=== PATIENT | male | born 1950 | race Caucasian/White ===

== ENCOUNTER → 2018-10-03 | Outpatient (CLI) | payer MEDICARE ==
--- NOTE | 2018-10-03 09:29 | PCVCIMAG ---
APPROVED REPORT Study performed: 10/03/2018 08:03:35 EXAM: Comprehensive 2D, Doppler, and color-flow Echocardiogram Patient Location: Echo lab Status: routine BSA: 1.93 HR: 63 bpmBP: 110/70 mmHg Rhythm: NSR Other Information Study Quality: Adequate Risk Factors: Cardiac Risk Factors: Hyperlipidemia Indications Murmur 2D Dimensions IVSd: 15.61 (7-11mm)LVOT Diam: 20.15 (18-24mm) LVDd: 38.06 mm PWd: 12.75 (7-11mm)Ascending Ao: 39.27 (22-36mm) LVDs: 35.47 (25-40mm) Left Atrium: 46.83 (27-40mm) Aortic Root: 30.94 mm LV Single Plane 4CH: 51.34 % LV Single Plane 2CH: 62.28 % Biplane EF: 58.7 % Volumes Left Atrial Volume (Systole) Single Plane 4CH: 59.19 mLSingle Plane 2CH: 38.11 mL LA ESV Index: 28.00 mL/m2 Aortic Valve AoV Peak Ananda.: 2.37 m/s AO Peak Gr.: 22.53 mmHgLVOT Max P.85 mmHg AO Mean Gr.: 13.34 mmHgLVOT Mean P.72 mmHg AO V2 Mean: 1.76 m/sLVOT Max V: 0.84 m/s AO V2 VTI: 49.92 cmLVOT Mean V: 0.62 m/s RENETTA (VTI): 1.27 [id number] V1 VTI: 19.87 cm RENETTA Vmax: 1.13 cm2 SV (LVOT): 63.32 mL Mitral Valve E/A Ratio: 0.8 MV Decel. Time: 187.07 ms MV E Max Ananda.: 0.61 m/s MV A Ananda.: 0.74 m/s IVRT: 124.57 ms TDI E/Lateral E': 8.71E/Medial E': 10.17 Medial E' Ananda.: 0.06 m/s Lateral E' Ananda.: 0.07 m/s Pulmonary Valve PV Peak Gr.: 3.30 mmHg Pulmonary Vein P Vein S: 0.49 m/sP Vein A: 0.42 m/s P Vein D: 0.48 m/sP Vein A Dur.: 121.1 msec P Vein S/D Ratio: 1.02 Tricuspid Valve TR Peak Ananda.: 2.29 m/s TR Peak Gr.: 20.94 mmHg Left Ventricle The left ventricle is normal size. There is normal LV segmental wall motion. There is normal left ventricular wall thickness. Left ventricular systolic function is normal. The left ventricular ejection fraction is within the normal range. LVEF is 55-60%. Mild diastolic dysfunction is present (impaired relaxation pattern). Right Ventricle The right ventricle is normal size. The right ventricular systolic function is normal. Atria The left atrium size is normal. The right atrium size is normal. Aortic Valve Aortic valve leaflets are moderately calcified, probably trileaflet No aortic regurgitation is present. Calculated aortic valve area is 1.3 cm2 with maximum pressure gradient of 22 mmHg and mean pressure gradient of 13 mmHg. Mitral Valve The mitral valve is normal in structure. No mitral regurgitation. No evidence of mitral valve stenosis. Tricuspid Valve The tricuspid valve is normal in structure. Trace tricuspid regurgitation. Pulmonary artery pressure is 25 mmHg. Pulmonic Valve The pulmonary valve is normal in structure. There is no pulmonic valvular regurgitation. Great Vessels The aortic root is normal in size. The ascending aorta is mildly dilated (3.9cm) IVC is normal in size and collapses >50% with inspiration. Pericardium There is no pericardial effusion. <Conclusion> Left ventricular systolic function is normal. There is normal LV segmental wall motion. LVEF is 55-60%. Mild diastolic dysfunction Aortic valve leaflets are moderately calcified, probably trileaflet No aortic regurgitation is present. Mild aortic stenosis Calculated aortic valve area is 1.3 cm2 with maximum pressure gradient of 22 mmHg and mean pressure gradient of 13 mmHg. The mitral valve is normal in structure. No mitral regurgitation. Trace tricuspid regurgitation. Pulmonary artery pressure of 25 mmHg. The ascending aorta is mildly dilated (3.9cm) There is no pericardial effusion.
== END | disposition home or self-care (01) ==
LOC: PCVCIMAG 07:52
PROVIDERS: ATTEND Internal Medicine
DX: I35.0 Nonrheumatic aortic (valve) stenosis (principal); E78.5 Hyperlipidemia, unspecified; Z82.49 Family history of ischemic heart disease and other diseases of the circulatory system
CPT/HCPCS: 93306